=== PATIENT | female | born 1990 | race African-American/Black ===

== ENCOUNTER 2017-07-17 18:48 | Emergency (ER) | payer MEDICAID, OTHER ==
[~2017-07-17] VITALS: Ht 170.2 cm; Wt 99.8 kg
[~2017-07-17 18:48] MED LIST: LEV500T PO; METR500T PO
[2017-07-17 19:41] LABS: Urine Bilirubin Negative (Negative); Urine Blood Negative /uL (Negative); Urine Color Yellow (Yellow); Urine Glucose Normal (Normal); Urine Ketone Negative (Negative); Urine Mucus FEW (None Seen); Urine Nitrite Negative (Negative); Urine RBC 4 /hpf (0 - 4); Urine Squamous Epithelial Cell FEW /hpf (<5); Urine Urobilinogen Normal (Negative); Urine pH 5.5 (5.0-8.0)
[2017-07-17 19:56] LABS: Basophils # (auto) 0.1 uL; Basophils % (auto) 0.6 % (0.0-2.0); CONDITION Y; Eosinophils # (auto) 0.2 uL; Eosinophils % (auto) 1.5 % (0.0-7.0); Hematocrit 39.6 % (36.0-46.0); Hemoglobin 13.1 g/dL (12.2-16.2); Lymphocytes # (auto) 3.8 uL; Lymphocytes % (auto) 26.5 % (10.0-50.0); Mean Corpuscular Hemoglobin 27.6 pg (28.0-32.0); Mean Corpuscular Volume 83.5 fL (80.0-100.0); Mean Platelet Volume 8.1 fL (7.4-10.4); Monocytes # (auto) 0.8 uL; Monocytes % (auto) 5.7 % (0.0-12.0); Neutrophils # (auto) 9.4 uL; Neutrophils % (auto) 65.7 % (37.0-80.0); Platelet Count (auto) 442 10^3/uL (140-450); Red Cell Distribution Width 15.8 % (11.6-16.0); White Blood Cell 14.3 10^3/uL (4.4-10.8)
[2017-07-17 20:16] LABS: BUN/Creatinine Ratio 11.9; Calcium 9.1 mg/dL (8.5-10.1); Magnesium 2.5 mg/dL (1.6-2.6); Potassium 4.4 mmol/L (3.5-5.1)
[2017-07-17 20:18] LABS: Bilirubin, Total 0.2 mg/dL (0.2-1.0); Total Protein 8.3 g/dL (6.4-8.2)
[2017-07-17] MEDS ORDERED: KETOROLAC TROMETH 30 MG/ML 1ML VIAL IV ONE (21:45)
[2017-07-17] MEDS ORDERED: KETOROLAC TROMETH 30 MG/ML 1ML VIAL IM ONE (22:15)
[2017-07-17 23:00] VITALS: BP 124/62
== END 2017-07-17 23:33 | disposition home or self-care (01) ==
LOC: ER 18:53
DX: N39.0 Urinary tract infection, site not specified (principal); K59.00 Constipation, unspecified; F17.210 Nicotine dependence, cigarettes, uncomplicated
CPT/HCPCS: 36415; 74000; 76856; 80053; 81001; 83690; 83735; 84702; 85025; 96372; 99285; J1885

== ENCOUNTER 2018-09-28 20:57 | Observation (INO) | payer MEDICAID ==
[~2018-09-28] VITALS: Ht 170.2 cm; Wt 127.0 kg
[2018-09-28] MEDS ORDERED: LACTATED RINGER'S 1,000 ML IV SCH (21:45)
[2018-09-28] MEDS ORDERED: TERBUTALINE SULFATE 1 MG/ML 1ML VIAL SC SCH (21:45)
[2018-09-28] MEDS ORDERED: LACTATED RINGER'S 1,000 ML IV ONE (21:45)
[2018-09-28] MEDS ORDERED: PREN-96 PO (21:49)
[2018-09-28] MEDS ORDERED: TERBUTALINE SULFATE 1 MG/ML 1ML VIAL SC ONE (21:50)
== END 2018-09-28 23:32 | disposition home or self-care (01) | DRG 566 ==
LOC: LDRP 20:57
PROVIDERS: ADMIT Specialist; ATTEND Specialist
DX: O62.9 Abnormality of forces of labor, unspecified (principal); Z3A.38 38 weeks gestation of pregnancy
CPT/HCPCS: 59025; 81002; 96372; G0378; J3105; 96365; 96366

== ENCOUNTER 2018-10-04 21:40 | Observation (INO) | payer MEDICAID ==
[~2018-10-04 21:40] MED LIST changes: +PREN-96 PO
== END 2018-10-04 21:50 | disposition left against medical advice (07) | DRG 566 ==
LOC: LDRP 21:40
PROVIDERS: ADMIT Specialist; ATTEND Specialist
DX: O48.0 Post-term pregnancy (principal); O26.893 Other specified pregnancy related conditions, third trimester; R10.9 Unspecified abdominal pain; Z3A.40 40 weeks gestation of pregnancy
CPT/HCPCS: G0378

== ENCOUNTER 2018-10-11 04:12 | Inpatient (IN) | payer MEDICAID ==
[~2018-10-11] VITALS: Ht 170.2 cm; Wt 124.3 kg
[2018-10-11] VITALS (15 sets, daily range): BP systolic 90–117; BP diastolic 50–75
[2018-10-11] MEDS: LACTATED RINGER'S 1,000 ML IV SCH ×3 (05:03→19:14)
[2018-10-11 05:26] LABS: Basophils # (auto) 0.1 uL; Basophils % (auto) 0.8 % (0.0-2.0); Eosinophils # (auto) 0.1 uL; Eosinophils % (auto) 0.5 % (0.0-7.0); Hematocrit 35.7 % (36.0-46.0); Hemoglobin 12.2 g/dL (12.2-16.2); Lymphocytes # (auto) 2.5 uL; Lymphocytes % (auto) 22.3 % (10.0-50.0); Mean Corpuscular Hemoglobin 30.1 pg (28.0-32.0); Mean Corpuscular Hgb Conc. 34.1 g/dL (32.0-36.0); Mean Corpuscular Volume 88.4 fL (80.0-100.0); Monocytes # (auto) 0.8 uL; Monocytes % (auto) 6.9 % (0.0-12.0); Neutrophils # (auto) 7.9 uL; Neutrophils % (auto) 69.5 % (37.0-80.0); Platelet Count (auto) 264 10^3/uL (140-450); Red Blood Cells 4.04 10^6/uL (4.0-5.20); Red Cell Distribution Width 14.5 % (11.8-14.3); White Blood Cell 11.4 10^3/uL (4.4-10.8)
[2018-10-11 05:40] LABS: INR 0.86 (0.9-1.15); Partial Thromboplastin Time 27.7 sec (23.78-33.04); Prothrombin Time 9.3 sec (9.27-12.13)
[2018-10-11 05:46] LABS: Albumin 2.3 g/dL (3.4-5.0); BUN/Creatinine Ratio 14.1; Calcium 8.6 mg/dL (8.5-10.1); Potassium 3.8 mmol/L (3.5-5.1)
[2018-10-11 05:48] LABS: Bilirubin, Total 0.3 mg/dL (0.2-1.0); Total Protein 7.4 g/dL (6.4-8.2)
[2018-10-11 05:53] LABS: Urine Bacteria MOD /hpf (None Seen); Urine Blood Negative /uL (Negative); Urine Mucus FEW (None Seen); Urine Specific Gravity 1.019 (1.001-1.035); Urine WBC 21 /hpf (0 - 5)
[2018-10-11 05:57] LABS: Alcohol, Urine < 3.0 mg/dL (0-5); Amphetamine Screen, Urine NEGATIVE (NEGATIVE); Barbiturate Scree,Urine NEGATIVE (NEGATIVE); Benzodiazephine Screen, Urine NEGATIVE (NEGATIVE); Cannabinoid Screen, Urine NEGATIVE (NEGATIVE); Cocaine Screen, Urine NEGATIVE (NEGATIVE); Opiate Scree,Urine NEGATIVE (NEGATIVE); Phencyclidine Screen, Urine NEGATIVE (NEGATIVE)
[2018-10-11] MEDS ORDERED: TETRACAINE 1% INJ 2 ML VIAL IJ ONE (07:19)
[2018-10-11] MEDS ORDERED: ONDANSETRON HCL 4 MG/2 ML VIAL IV PRN (07:45)
[2018-10-11] MEDS ORDERED: ceFAZolin 1GM/50ML 50 ML IV SCH (07:45)
[2018-10-11] MEDS ORDERED: KETOROLAC TROMETH 30 MG/ML 1ML VIAL IV PRN ×2 (07:45→21:15)
[2018-10-11] MEDS ORDERED: MORPHINE SULF(PF) 0.5MG/ML 10ML VIAL ONE (07:46)
[2018-10-11] MEDS ORDERED: fentaNYL CITRATE 100 MCG/2 ML VL ONE (07:46)
[2018-10-11] MEDS ORDERED: MIDAZOLAM HCL 1MG/1ML-2 ML VIAL ONE ×2 (07:46→08:28)
[2018-10-11] MEDS ORDERED: NALOXONE HCL 0.4 MG/ML VIAL IV PRN (08:00)
[2018-10-11] MEDS ORDERED: LABETALOL HCL 5 MG/ML 4ML SYRINGE IV PRN (08:00)
[2018-10-11] MEDS ORDERED: ePHEDrine SULFATE 50 MG/ML AMP IV PRN (08:00)
[2018-10-11] MEDS ORDERED: HYDROmorphone HCL 2 MG/ML VL IV PRN (08:00)
[2018-10-11] MEDS ORDERED: OXYTOCIN 10 UNIT/ML 10ML VIAL ONE (08:14)
[2018-10-11] MEDS ORDERED: ceFAZolin 1GM/50ML 50 ML IV ONE (08:25)
[2018-10-11] MEDS: LACT. RINGERS/OXYTOCIN 20UNITS 1,000 ML IV SCH ×2 (11:15→21:26)
[2018-10-11] MEDS: ceFAZolin 1GM/50ML 50 ML IV SCH (17:25)
[2018-10-11] MEDS: MORPHINE SULFATE 4 MG/ML SYR/VIAL IV PRN (19:07)
[2018-10-11 19:57] LABS: Basophils # (auto) 0.1 uL; Basophils % (auto) 0.5 % (0.0-2.0); Eosinophils # (auto) 0 uL; Eosinophils % (auto) 0.2 % (0.0-7.0); Hematocrit 35.8 % (36.0-46.0); Hemoglobin 11.8 g/dL (12.2-16.2); Lymphocytes # (auto) 2.5 uL; Lymphocytes % (auto) 16.1 % (10.0-50.0); Mean Corpuscular Hemoglobin 29.6 pg (28.0-32.0); Mean Corpuscular Hgb Conc. 32.9 g/dL (32.0-36.0); Mean Corpuscular Volume 89.9 fL (80.0-100.0); Monocytes # (auto) 0.8 uL; Monocytes % (auto) 4.8 % (0.0-12.0); Neutrophils # (auto) 12.3 uL; Neutrophils % (auto) 78.4 % (37.0-80.0); Platelet Count (auto) 260 10^3/uL (140-450); Red Blood Cells 3.98 10^6/uL (4.0-5.20); Red Cell Distribution Width 14.3 % (11.8-14.3); White Blood Cell 15.6 10^3/uL (4.4-10.8)
[2018-10-12] MEDS: diphenhdrAMINE HCL 50 MG/1 ML VL IV PRN ×2 (00:17→08:45)
[2018-10-12] MEDS: ceFAZolin 1GM/50ML 50 ML IV SCH ×2 (01:08→10:00)
[2018-10-12 03:15] VITALS: BP 116/69
[2018-10-12] MEDS: LACTATED RINGER'S 1,000 ML IV SCH ×3 (04:20→18:56)
[2018-10-12] MEDS: MORPHINE SULFATE 4 MG/ML SYR/VIAL IV PRN (04:29)
[2018-10-12 05:05] LABS: RPR Non Reactive (Non Reactive)
[2018-10-12 07:00] VITALS: BP 108/68
[2018-10-12 07:50] LABS: Basophils # (auto) 0.1 uL; Basophils % (auto) 0.4 % (0.0-2.0); Eosinophils # (auto) 0 uL; Eosinophils % (auto) 0.3 % (0.0-7.0); Hematocrit 34.2 % (36.0-46.0); Hemoglobin 11.4 g/dL (12.2-16.2); Lymphocytes # (auto) 2.4 uL; Lymphocytes % (auto) 19.9 % (10.0-50.0); Mean Corpuscular Hemoglobin 29.7 pg (28.0-32.0); Mean Corpuscular Hgb Conc. 33.3 g/dL (32.0-36.0); Mean Corpuscular Volume 89.1 fL (80.0-100.0); Monocytes # (auto) 0.7 uL; Monocytes % (auto) 5.6 % (0.0-12.0); Neutrophils # (auto) 8.7 uL; Neutrophils % (auto) 73.8 % (37.0-80.0); Platelet Count (auto) 252 10^3/uL (140-450); Red Blood Cells 3.83 10^6/uL (4.0-5.20); Red Cell Distribution Width 14.5 % (11.8-14.3); White Blood Cell 11.9 10^3/uL (4.4-10.8)
[2018-10-12] MEDS ORDERED: diphenhdrAMINE HCL 50 MG/1 ML VL ONE (08:38)
[2018-10-12] MEDS ORDERED: HYDROcodone-ACET 5/325MG TAB PO PRN ×2 (08:45→09:00)
[2018-10-12] MEDS ORDERED: BISACODYL 10 MG RECT SUPP PR PRN (08:45)
[2018-10-12] MEDS: DOCUSATE SOD 100 MG CAP PO SCH ×2 (10:00→22:00)
[2018-10-12] MEDS: HYDROcodone-ACET 5/325MG TAB PO PRN ×2 (10:00→21:07)
[2018-10-12] MEDS: DOCUSATE CALCIUM 240 MG CAP PO SCH (10:00)
[2018-10-12] MEDS: FERROUS SULFATE 325 MG TAB PO SCH ×2 (10:13→22:00)
[2018-10-12 10:50] VITALS: BP 105/63
[2018-10-12] MEDS ORDERED: ceFAZolin 1GM/50ML 50 ML IV ONE (11:14)
[2018-10-12] MEDS: SIMETHICONE 80 MG CHEWABLE TABLET PO SCH ×3 (12:00→22:00)
[2018-10-12] MEDS ORDERED: diphenhdrAMINE HCL 25 MG CAP PO PRN (14:00)
[2018-10-12] MEDS: IBUPROFEN 800 MG TAB PO PRN (14:23)
[2018-10-12 15:00] VITALS: BP 98/66
[2018-10-12 19:00] VITALS: BP 105/67
[2018-10-12 23:03] VITALS: BP 113/60
[2018-10-13] MEDS: HYDROcodone-ACET 5/325MG TAB PO PRN ×4 (02:52→20:07)
[2018-10-13 03:00] VITALS: BP 102/58
[2018-10-13] MEDS: IBUPROFEN 800 MG TAB PO PRN ×2 (05:58→16:01)
[2018-10-13] MEDS: SIMETHICONE 80 MG CHEWABLE TABLET PO SCH ×4 (06:00→22:05)
[2018-10-13 07:30] VITALS: BP 103/61
[2018-10-13] MEDS: DOCUSATE CALCIUM 240 MG CAP PO SCH (10:33)
[2018-10-13] MEDS: FERROUS SULFATE 325 MG TAB PO SCH ×2 (10:34→22:05)
[2018-10-13] MEDS: DOCUSATE SOD 100 MG CAP PO SCH ×2 (10:34→22:05)
[2018-10-13 11:00] VITALS: BP 111/62
[2018-10-13 15:30] VITALS: BP 109/68
[2018-10-13 23:00] VITALS: BP 106/59
[2018-10-13] MEDS ORDERED: TETANUS-DIPTH-ACEL PERTUSSIS 0.5ML SYRG IM ONE (23:00)
[2018-10-13] MEDS ORDERED: MEASLES, MUMPS & RUBELLA VAC(MMRII) 0.5ML SC ONE (23:00)
[2018-10-14 03:00] VITALS: BP 119/64
[2018-10-14] MEDS: HYDROcodone-ACET 5/325MG TAB PO PRN ×2 (05:10→10:04)
[2018-10-14] MEDS: SIMETHICONE 80 MG CHEWABLE TABLET PO SCH (05:20)
[2018-10-14] MEDS: IBUPROFEN 800 MG TAB PO PRN (06:35)
[2018-10-14 07:30] VITALS: BP 108/65
[2018-10-14] MEDS: DOCUSATE CALCIUM 240 MG CAP PO SCH (10:04)
[2018-10-14 11:00] VITALS: BP 117/69
[2018-10-14] MEDS ORDERED: INFLUENZA QUAD 2018-2019 0.5 ML SYRG IM ONE (12:30)
== END 2018-10-14 13:40 | disposition home or self-care (01) | DRG 540 ==
LOC: LDRP 04:12
PROVIDERS: ADMIT Specialist; ATTEND Specialist
PROC: 10D00Z1 Extraction of Products of Conception, Low, Open Approach (ICD-10-PCS; principal; 2018-10-11 07:45)
DX: O34.211 Maternal care for low transverse scar from previous cesarean delivery (principal); E66.9 Obesity, unspecified; F17.200 Nicotine dependence, unspecified, uncomplicated; O75.89 Other specified complications of labor and delivery; O99.214 Obesity complicating childbirth; R20.0 Anesthesia of skin; O99.334 Smoking (tobacco) complicating childbirth; Z37.0 Single live birth; Z82.49 Family history of ischemic heart disease and other diseases of the circulatory system; Z3A.39 39 weeks gestation of pregnancy; Z23 Encounter for immunization
CPT/HCPCS: 36415; 51702; 59025; 80053; 80307; 81001; 85025; 85610; 85730; 86592; 86850; 86900; 86901; 90471; 90472; 90674; 90715; 93971; 94760; 96375; 97116; 97163; 97530; G0378; J0690; J1885; J2250; J2590

== ENCOUNTER 2018-11-08 16:17 | Emergency (ER) | payer MEDICAID ==
[~2018-11-08] VITALS: Ht 167.6 cm; Wt 119.3 kg
[~2018-11-08 16:17] MED LIST changes: -LEV500T PO; -METR500T PO
[2018-11-08 16:31] VITALS: BP 127/86
[2018-11-08] MEDS ORDERED: methylPREDNISolone SOD SUCC 125 MG/2 ML VL IM ONE (19:15)
[2018-11-08] MEDS ORDERED: KETOROLAC TROMETH 60MG/2ML VIAL IM ONE (19:15)
[2018-11-08] MEDS ORDERED: IBUPROFEN 800 MG TAB PO ONE (20:30)
[2018-11-08] MEDS ORDERED: ACETAMINOPHEN 500 MG TAB PO ONE (20:30)
== END 2018-11-08 19:44 | disposition home or self-care (01) ==
LOC: ER 16:22
DX: G62.9 Polyneuropathy, unspecified (principal); T85.9XXA Unspecified complication of internal prosthetic device, implant and graft, initial encounter; F17.210 Nicotine dependence, cigarettes, uncomplicated; Y83.8 Other surgical procedures as the cause of abnormal reaction of the patient, or of later complication, without mention of misadventure at the time of the procedure; Y92.89 Other specified places as the place of occurrence of the external cause
CPT/HCPCS: 96372; 99283; J1885; J2930

== ENCOUNTER 2018-11-16 15:30 | Emergency (ER) | payer MEDICAID ==
[~2018-11-16] VITALS: Ht 170.2 cm; Wt 119.3 kg
[2018-11-16 16:16] VITALS: BP 143/103
[2018-11-16] MEDS ORDERED: KETOROLAC TROMETH 60MG/2ML VIAL IM ONE (17:30)
== END 2018-11-16 18:19 | disposition home or self-care (01) ==
LOC: ER 15:30
DX: M54.16 Radiculopathy, lumbar region (principal); M51.86 Other intervertebral disc disorders, lumbar region; F17.210 Nicotine dependence, cigarettes, uncomplicated
CPT/HCPCS: 72131; 96372; 99284; J1885

== ENCOUNTER 2019-01-09 15:09 | Emergency (ER) | payer MEDICAID ==
[~2019-01-09] VITALS: Ht 170.2 cm; Wt 116.6 kg
[2019-01-09 15:33] VITALS: BP 132/79
[2019-01-09] MEDS ORDERED: methylPREDNISolone SOD SUCC 125 MG/2 ML VL IM ONE (19:30)
[2019-01-09] MEDS ORDERED: KETOROLAC TROMETH 60MG/2ML VIAL IM ONE (19:30)
== END 2019-01-09 20:59 | disposition home or self-care (01) ==
LOC: ER 15:09
DX: M51.06 Intervertebral disc disorders with myelopathy, lumbar region (principal); F17.210 Nicotine dependence, cigarettes, uncomplicated
CPT/HCPCS: 96372; 99283; J1885; J2930

== ENCOUNTER 2019-01-18 10:31 | Emergency (ER) | payer MEDICAID ==
[~2019-01-18] VITALS: Ht 170.2 cm; Wt 115.2 kg
[2019-01-18 12:38] VITALS: BP 124/83
== END 2019-01-18 18:01 | disposition home or self-care (01) ==
LOC: ER 10:31
DX: M54.5 Low back pain (principal); F17.210 Nicotine dependence, cigarettes, uncomplicated; Z76.0 Encounter for issue of repeat prescription

== ENCOUNTER 2021-05-22 13:22 | Observation (INO) | payer MEDICAID | END 2021-05-22 13:52 | disposition home or self-care (01) | LOC: LDRP 13:22 | PROVIDERS: ADMIT Obstetrics & Gynecology; ATTEND Obstetrics & Gynecology | DX: O62.9 Abnormality of forces of labor, unspecified (principal); Z3A.36 36 weeks gestation of pregnancy; Z87.891 Personal history of nicotine dependence | CPT/HCPCS: 59025; 76818; 81002; 94760; G0378 ==

== ENCOUNTER 2021-05-24 09:45 | Observation (INO) | payer MEDICAID | END 2021-05-24 11:27 | disposition home or self-care (01) | LOC: LDRP 09:45 | PROVIDERS: ADMIT Specialist; ATTEND Specialist | DX: Z34.83 Encounter for supervision of other normal pregnancy, third trimester (principal); Z3A.36 36 weeks gestation of pregnancy; Z87.891 Personal history of nicotine dependence | CPT/HCPCS: 59025; 76818; 81002; G0378 ==

== ENCOUNTER 2021-05-26 19:30 | Observation (INO) | payer MEDICAID ==
[~2021-05-26] VITALS: Ht 170.2 cm; Wt 148.3 kg
== END 2021-05-26 22:28 | disposition home or self-care (01) ==
LOC: LDRP 19:30
PROVIDERS: ADMIT Specialist; ATTEND Specialist
DX: O62.9 Abnormality of forces of labor, unspecified (principal); O26.893 Other specified pregnancy related conditions, third trimester; R51.9 Headache, unspecified; Z87.891 Personal history of nicotine dependence; Z3A.36 36 weeks gestation of pregnancy
CPT/HCPCS: 59025; 76818; 81002; G0378

== ENCOUNTER 2021-06-11 10:00 | Observation (INO) | payer MEDICAID ==
[~2021-06-11] VITALS: Ht 170.2 cm; Wt 148.8 kg
== END 2021-06-11 12:30 | disposition home or self-care (01) ==
LOC: LDRP 10:00 → EDSTATUS 10:02 → LDRP 10:25
PROVIDERS: ADMIT Specialist; ATTEND Specialist
DX: Z34.83 Encounter for supervision of other normal pregnancy, third trimester (principal); Z20.822 Contact with and (suspected) exposure to COVID-19; Z91.19 Patient's noncompliance with other medical treatment and regimen; Z87.891 Personal history of nicotine dependence; Z3A.38 38 weeks gestation of pregnancy
CPT/HCPCS: 76818; G0378; U0003

== ENCOUNTER 2021-06-13 04:05 | Inpatient (IN) | payer MEDICAID ==
[~2021-06-13] VITALS: Ht 170.2 cm; Wt 146.1 kg
[2021-06-13] VITALS (15 sets, daily range): BP systolic 106–142; BP diastolic 65–87
[2021-06-13] MEDS ORDERED: LACTATED RINGER'S 1,000 ML IV SCH ×2 (04:30→09:45)
[2021-06-13] MEDS ORDERED: LACTATED RINGER'S 1,000 ML IV ONE (04:30)
[2021-06-13] MEDS ORDERED: ceFAZolin 1GM/50ML 50 ML IV ONE (04:30)
[2021-06-13 04:59] LABS: Basophils # (auto) 0.1 10 ^3/uL (0-0.2); Basophils % (auto) 0.5 % (0.0-2.0); Eosinophils # (auto) 0.1 10 ^3/uL (0-0.8); Eosinophils % (auto) 0.6 % (0.0-7.0); Hematocrit 33.9 % (36.0-46.0); Hemoglobin 11.5 g/dL (12.2-16.2); Lymphocytes # (auto) 2.3 10 ^3/uL (0.4-5.4); Lymphocytes % (auto) 18.2 % (10.0-50.0); Mean Corpuscular Hemoglobin 27.6 pg (28.0-32.0); Mean Corpuscular Hgb Conc. 34.1 g/dL (32.0-36.0); Mean Corpuscular Volume 81.1 fL (80.0-100.0); Monocytes # (auto) 0.8 10 ^3/uL (0-1.3); Monocytes % (auto) 6.2 % (0.0-12.0); Neutrophils # (auto) 9.2 10 ^3/uL (1.6-8.6); Neutrophils % (auto) 74.5 % (37.0-80.0); Red Blood Cells 4.17 10^6/uL (4.0-5.20); Red Cell Distribution Width 14.5 % (11.8-14.3); White Blood Cell 12.4 10^3/uL (4.4-10.8)
[2021-06-13 05:16] LABS: INR 0.91 (0.9-1.15); Partial Thromboplastin Time 27.4 sec (23.0-31.2)
[2021-06-13 05:23] LABS: Albumin 2.3 g/dL (3.4-5.0); Calcium 8.7 mg/dL (8.5-10.1); Potassium 3.7 mmol/L (3.5-5.1)
[2021-06-13 05:24] LABS: Alcohol, Urine < 3.0 mg/dL (0-10); Amphetamine Screen, Urine NEGATIVE (NEGATIVE); Barbiturate Scree,Urine NEGATIVE (NEGATIVE); Benzodiazephine Screen, Urine NEGATIVE (NEGATIVE); Cannabinoid Screen, Urine NEGATIVE (NEGATIVE); Cocaine Screen, Urine NEGATIVE (NEGATIVE); Opiate Scree,Urine NEGATIVE (NEGATIVE); Phencyclidine Screen, Urine NEGATIVE (NEGATIVE)
[2021-06-13 05:26] LABS: Bilirubin, Total 0.2 mg/dL (0.2-1.0); Total Protein 7.4 g/dL (6.4-8.2)
[2021-06-13 06:11] LABS: Urine Bacteria NONE SEEN /hpf (None Seen); Urine Blood 1+ /uL (Negative); Urine Mucus FEW (None Seen); Urine Specific Gravity 1.034 (1.001-1.035); Urine WBC 4 /hpf (0 - 5)
[2021-06-13] MEDS ORDERED: SUCCINYLCHOLINE CHLORIDE 20 MG/ML 10ML VIAL IV ONE (07:35)
[2021-06-13] MEDS ORDERED: TETRACAINE 1% INJ 2 ML VIAL IJ ONE (07:35)
[2021-06-13] MEDS ORDERED: MIDAZOLAM HCL 1MG/1ML-2 ML VIAL ONE (07:38)
[2021-06-13] MEDS ORDERED: MORPHINE SULF(PF) 0.5MG/ML 10ML VIAL ONE (07:38)
[2021-06-13] MEDS ORDERED: fentaNYL CITRATE 100 MCG/2 ML VL ONE (07:38)
[2021-06-13] MEDS ORDERED: SODIUM CITR/CITRIC ACID ORAL SOLN 30 ML PO ONE (07:45)
[2021-06-13] MEDS ORDERED: SODIUM CITR/CITRIC ACID ORAL SOLN 30 ML PO SCH ×2 (07:45→09:00)
[2021-06-13] MEDS ORDERED: GUM (CHEWING) 1 GUM CHEW CHEW ONE (09:45)
[2021-06-13] MEDS ORDERED: KETOROLAC TROMETH 30 MG/ML 1ML VIAL IV PRN ×2 (09:45→10:00)
[2021-06-13] MEDS ORDERED: HYDROmorphone HCL 2 MG/ML VL IV PRN ×2 (09:45→10:00)
[2021-06-13] MEDS ORDERED: ONDANSETRON HCL 4 MG/2 ML VIAL IV PRN ×2 (09:45→10:00)
[2021-06-13] MEDS ORDERED: ACETAMINOPHEN IV 1000 MG/100ML (10MG/ML) IV PRN (09:45)
[2021-06-13] MEDS ORDERED: NALBUPHINE HCL 10 MG/1ml INJECTION SUBCUT ONE (10:00)
[2021-06-13] MEDS ORDERED: NALOXONE HCL 0.4 MG/ML VIAL IV PRN (10:00)
[2021-06-13] MEDS ORDERED: DexAMETHasone SOD PHOS 10MG/1ML VIAL INJ IV PRN (10:00)
[2021-06-13] MEDS: diphenhdrAMINE HCL 50 MG/1 ML VL IV PRN ×2 (10:34→22:46)
[2021-06-13] MEDS: ceFAZolin 1GM/50ML 50 ML IV SCH ×2 (15:09→23:13)
[2021-06-13] MEDS ORDERED: ACETAMINOPHEN IV 1000 MG/100ML (10MG/ML) IV ONE (16:15)
[2021-06-14] VITALS (11 sets, daily range): BP systolic 105–132; BP diastolic 59–79
[2021-06-14 06:06] LABS: RPR Non Reactive (Non Reactive)
[2021-06-14] MEDS: ceFAZolin 1GM/50ML 50 ML IV SCH (07:00)
[2021-06-14] MEDS ORDERED: HYDROcodone-ACET 5/325MG TAB PO PRN (07:15)
[2021-06-14] MEDS: HYDROcodone-ACET 5/325MG TAB PO PRN ×2 (08:20→19:10)
[2021-06-14] MEDS: DOCUSATE SOD 100 MG CAP PO SCH ×2 (09:47→22:00)
[2021-06-14] MEDS: DOCUSATE CALCIUM 240 MG CAP PO SCH (09:47)
[2021-06-14 10:09] LABS: Basophils # (auto) 0 10 ^3/uL (0-0.2); Basophils % (auto) 0.4 % (0.0-2.0); Eosinophils # (auto) 0 10 ^3/uL (0-0.8); Eosinophils % (auto) 0.4 % (0.0-7.0); Hematocrit 31.4 % (36.0-46.0); Hemoglobin 10.5 g/dL (12.2-16.2); Lymphocytes # (auto) 1.7 10 ^3/uL (0.4-5.4); Lymphocytes % (auto) 14.9 % (10.0-50.0); Mean Corpuscular Hgb Conc. 33.4 g/dL (32.0-36.0); Mean Corpuscular Volume 80.9 fL (80.0-100.0); Monocytes # (auto) 0.6 10 ^3/uL (0-1.3); Monocytes % (auto) 5.3 % (0.0-12.0); Neutrophils # (auto) 8.8 10 ^3/uL (1.6-8.6); Nucleated Red Blood Cells % 0.1 %; Red Blood Cells 3.89 10^6/uL (4.0-5.20); Red Cell Distribution Width 14.6 % (11.8-14.3); White Blood Cell 11.1 10^3/uL (4.4-10.8)
[2021-06-14] MEDS ORDERED: diphenhdrAMINE HCL 25 MG CAP PO PRN (11:00)
[2021-06-14] MEDS: SIMETHICONE 80 MG CHEWABLE TABLET PO SCH ×3 (12:02→22:04)
[2021-06-14] MEDS: IBUPROFEN 800 MG TAB PO PRN ×2 (12:03→21:11)
[2021-06-15] MEDS: HYDROcodone-ACET 5/325MG TAB PO PRN ×5 (00:44→22:10)
[2021-06-15 02:50] VITALS: BP 109/68
[2021-06-15] MEDS: IBUPROFEN 800 MG TAB PO PRN ×2 (05:01→18:44)
[2021-06-15 07:00] VITALS: BP 137/75
[2021-06-15] MEDS: SIMETHICONE 80 MG CHEWABLE TABLET PO SCH ×4 (07:21→22:10)
[2021-06-15] MEDS: DOCUSATE SOD 100 MG CAP PO SCH ×2 (09:45→22:10)
[2021-06-15] MEDS: DOCUSATE CALCIUM 240 MG CAP PO SCH (09:45)
[2021-06-15 10:53] VITALS: BP 134/92
[2021-06-15 14:40] VITALS: BP 142/89
[2021-06-15] MEDS ORDERED: TETANUS-DIPTH-ACEL PERTUSSIS 0.5ML SYR Tdap IM ONE (16:30)
[2021-06-15 18:45] VITALS: BP 138/86
[2021-06-15 23:25] VITALS: BP 135/74
[2021-06-16 03:05] VITALS: BP 124/82
[2021-06-16] MEDS ORDERED: BISACODYL 10 MG RECT SUPP PR PRN (04:45)
[2021-06-16] MEDS: SIMETHICONE 80 MG CHEWABLE TABLET PO SCH (05:38)
[2021-06-16] MEDS: HYDROcodone-ACET 5/325MG TAB PO PRN ×2 (05:38→11:02)
[2021-06-16 06:45] VITALS: BP 106/75
[2021-06-16] MEDS: DOCUSATE CALCIUM 240 MG CAP PO SCH (11:01)
[2021-06-16] MEDS: DOCUSATE SOD 100 MG CAP PO SCH (11:01)
[2021-06-16 11:45] VITALS: BP 106/75
== END 2021-06-16 11:45 | disposition home or self-care (01) | DRG 540 ==
LOC: LDRP 04:05
PROVIDERS: ADMIT Specialist; ATTEND Specialist
PROC: 10D00Z1 Extraction of Products of Conception, Low, Open Approach (ICD-10-PCS; principal; 2021-06-13 08:10)
DX: O34.211 Maternal care for low transverse scar from previous cesarean delivery (principal); E66.01 Morbid (severe) obesity due to excess calories; K66.0 Peritoneal adhesions (postprocedural) (postinfection); O99.214 Obesity complicating childbirth; Z37.0 Single live birth; Z3A.39 39 weeks gestation of pregnancy
CPT/HCPCS: 36415; 59025; 80053; 80307; 81001; 85025; 85610; 85730; 86592; 86850; 86900; 86901; 90715; 94760; 94762; 96360; 96361; 96365; 96366; 96374; 96375; G0378; J0131; J0330; J0690; J1885; J2250

== ENCOUNTER 2022-07-02 06:44 | Emergency (ER) | payer MEDICAID ==
[~2022-07-02] VITALS: Ht 170.2 cm; Wt 145.4 kg
[2022-07-02 07:15] VITALS: BP 132/93
[2022-07-02] MEDS ORDERED: GABA300C10 PO ×3 (08:14→08:26)
[2022-07-02] MEDS ORDERED: TRAM-297 PO ×3 (08:14→08:26)
[2022-07-02] MEDS ORDERED: KETOROLAC TROMETH 60MG/2ML VIAL IM ONE (08:15)
== END 2022-07-02 08:22 | disposition home or self-care (01) ==
LOC: ER 06:44
DX: G89.29 Other chronic pain (principal); M54.9 Dorsalgia, unspecified; Z76.0 Encounter for issue of repeat prescription; F17.210 Nicotine dependence, cigarettes, uncomplicated; Z79.899 Other long term (current) drug therapy
CPT/HCPCS: 99281; J1885

== ENCOUNTER 2023-08-14 10:49 | Emergency (ER) | payer MEDICAID ==
[~2023-08-14] VITALS: Ht 170.2 cm; Wt 144.1 kg
[~2023-08-14 10:49] MED LIST changes: +GABA-1250 PO; +TRAM-297 PO
[2023-08-14 11:23] LABS: Basophils # (auto) 0 10 ^3/uL (0-0.2); Basophils % (auto) 0.4 % (0.0-2.0); Eosinophils # (auto) 0.2 10 ^3/uL (0-0.8); Eosinophils % (auto) 1.5 % (0.0-7.0); Hematocrit 39.1 % (36.0-46.0); Hemoglobin 13.2 g/dL (12.2-16.2); Lymphocytes # (auto) 3.7 10 ^3/uL (0.4-5.4); Mean Corpuscular Hemoglobin 28.4 pg (28.0-32.0); Mean Corpuscular Hgb Conc. 33.9 g/dL (32.0-36.0); Mean Corpuscular Volume 83.8 fL (80.0-100.0); Monocytes # (auto) 0.6 10 ^3/uL (0-1.3); Monocytes % (auto) 5.6 % (0.0-12.0); Neutrophils % (auto) 57.5 % (37.0-80.0); Red Blood Cells 4.67 10^6/uL (4.0-5.20); White Blood Cell 10.5 10^3/uL (4.4-10.8)
[2023-08-14 11:44] LABS: Alanine Aminotransferase < 9 U/L (7-40); Albumin 4.1 g/dL (3.2-4.8); Alkaline Phosphatase 83 U/L (46-116); Anion Gap 5 (5-15); Aspartate Aminotransferase 11 U/L (13-40); BUN/Creatinine Ratio 8.3 (10.0-20.0); Bilirubin, Total 0.3 mg/dL (0.2-1.0); Blood Urea Nitrogen 8 mg/dL (9-23); Calcium 9.3 mg/dL (8.7-10.4); Carbon Dioxide 25 mmol/L (20-30); Chloride 105 mmol/L (98-107); Glucose 104 mg/dL (74-106); Lipase 42 U/L (12-53); Potassium 3.9 mmol/L (3.5-5.1); Sodium 135 mmol/L (136-145); Total Protein 8.2 g/dL (5.7-8.2)
[2023-08-14 12:49] LABS: Urine Bacteria NONE SEEN /hpf (None Seen); Urine Blood 2+ /uL (Negative); Urine Clarity Clear (Clear); Urine Color Yellow (Yellow); Urine Mucus FEW (None Seen); Urine Protein, UAD Negative (Negative); Urine Specific Gravity 1.022 (1.001-1.035); Urine Urobilinogen Normal (Negative); Urine WBC 2 /hpf (0 - 5); Urine pH 6.5 (5.0-8.0)
[2023-08-14 13:12] VITALS: BP 119/89; PULSE 91; RESP 18; TEMP 98.7; O2SAT 100
== END 2023-08-14 13:16 | disposition home or self-care (01) ==
LOC: ER 10:49
DX: R10.32 Left lower quadrant pain (principal); F17.210 Nicotine dependence, cigarettes, uncomplicated; Z79.899 Other long term (current) drug therapy; Z98.890 Other specified postprocedural states
CPT/HCPCS: 36415; 74176; 80053; 81001; 83690; 85025

== ENCOUNTER 2024-05-13 13:35 | Emergency (ER) | payer MEDICAID ==
[~2024-05-13] VITALS: Ht 170.2 cm; Wt 136.0 kg
[2024-05-13] MEDS ORDERED: KETOROLAC TROMETH 30 MG/ML 1ML VIAL IV ONE (14:15)
[2024-05-13] MEDS: ONDANSETRON HCL 4 MG/2 ML VIAL IV ONE (14:41)
[2024-05-13] MEDS: HYDROmorphone HCL 2 MG/ML VL/or syr IV ONE (14:41)
[2024-05-13 14:42] VITALS: PULSE 90; RESP 20; TEMP 98.2; O2SAT 96
[2024-05-13] MEDS: HYDROmorphone HCL 2 MG/ML VL/or syr IM ONE (17:17)
[2024-05-13 19:30] VITALS: PULSE 80; RESP 12; O2SAT 99
[2024-05-13] MEDS ORDERED: HYDR-4798 PO (20:03)
[2024-05-13 22:00] VITALS: BP 107/72; PULSE 89; RESP 13; O2SAT 100
== END 2024-05-13 22:15 | disposition home or self-care (01) ==
LOC: ER 13:35 → EDBD 13:35 → ER 22:15
DX: S72.001A Fracture of unspecified part of neck of right femur, initial encounter for closed fracture (principal); F17.210 Nicotine dependence, cigarettes, uncomplicated; W18.09XA Striking against other object with subsequent fall, initial encounter; Y93.01 Activity, walking, marching and hiking; Y92.098 Other place in other non-institutional residence as the place of occurrence of the external cause; Y99.8 Other external cause status
CPT/HCPCS: 72100; 72170; 72192; 72220; 73502; 96372; 96374; 96375; 99285; J1170; J2405